=== PATIENT | male | born 1950 | race Caucasian/White ===

== ENCOUNTER 2019-09-20 14:07 | Inpatient (IN) | payer MEDICARE ==
[~2019-09-20] VITALS: Ht 180.3 cm; Wt 81.8 kg
[2019-09-20] MEDS ORDERED: CELEXA20 MG PO (14:14)
[2019-09-20] MEDS ORDERED: FLOMAX0.4 MG PO (14:15)
[2019-09-20] MEDS ORDERED: TRILEPTAL300 MG PO (14:15)
[2019-09-20] MEDS ORDERED: ROPINIROLE HCL1 MG PO (14:15)
--- NOTE | 2019-09-20 14:40 | NUR ---
FLAP LINING BINDER AT BEDSIDE FOR XRAY.
[2019-09-20 14:48] VITALS: BP 130/65
--- NOTE | 2019-09-20 14:49 | NUR ---
PT RESTING IN POSITION OF COMFORT, DENIES NEEDS AT THIS TIME. WILL CONTINUE TO MONITOR.
--- NOTE | 2019-09-20 15:34 | NUR ---
PT TO CT VIA STRETCHER WITH STEWARD/STEWARDESS DINING ROOM.
[2019-09-20 16:31] VITALS: BP 122/71
[2019-09-20 16:55] VITALS: BP 165/83
--- NOTE | 2019-09-20 16:56 | NUR ---
PT MEDICATED PER MD ORDER: MORPHINE 4MG IVP AND ZOFRAN 4MG IVP. NORMAL SALINE STARTED AT 100ML/HR
--- NOTE | 2019-09-20 16:59 | NUR ---
PT USING URINAL AT THIS TIME. INSTRUCTED TO NOTIFY STAFF WHEN FINISHED. VERBALIZED UNDERSTANDING.
--- NOTE | 2019-09-20 17:05 | NUR ---
DR HOLLIDAY AT BEDSIDE.
--- NOTE | 2019-09-20 17:15 | NUR ---
PT INFORMED THAT ROOM IS READY AND HE WILL BE MOVED SOON. PT STATES HE WANTS TO WAIT UNTIL HIS GETS HERE TO DECIDE FOR SURE IF HE WANTS TO BE ADMITTED. PROVIDER NOTIFIED.
[2019-09-20 17:30] VITALS: BP 134/62
--- NOTE | 2019-09-20 17:49 | NUR ---
PT AT BEDSIDE AT THIS TIME.
--- NOTE | 2019-09-20 18:00 | NUR ---
PROVIDER AT BEDSIDE TO DISCUSS PLAN OF CARE WITH PATIENT AND . PT AND WANT TO KNOW IF IT WOULD BE POSSIBLE TO GO HOME TONIGHT AND SEE THEIR OTHO TOMORROW THEY LIVE IN [place]. PROVIDER EXPLAINS RISKS TO PT AND . STATES SHE IS GOING TO TRY AND GET IN TOUCH WITH THEIR ORTHO TO MAKE SURE HE WOULD BE SEEN TOMORROW IF THEY LEAVE.
[2019-09-20] MEDS ORDERED: ASCORBIC ACID500 MG PO (19:00)
[2019-09-20] MEDS ORDERED: BILBERRY100 MG PO (19:01)
[2019-09-20] MEDS ORDERED: ALEVE220 MG PO (19:01)
--- NOTE | 2019-09-20 19:15 | NUR ---
PT BROUGHT TO FLOOR VIA STRETCHER. TRANSFERED SELF TO BED, TOLERATED WELL. STATES NOT MUCH PAIN UNLESS HE MOVES HIS LEG. IV LEFT WRIST INFUSING NS @ 100. RIGHT KNEE SWOLLEN, IN IMMOBILIZER. VSS. STATES WILL BE HERE SOON. INFORMED PT HE NPO AFTER MN. PT EATING DINNER TRAY AT THIS TIME. INFORMED PT HE WOULD NEED HIBI CLEANSE TONIGHT BEFORE SURGERY IN AM, VERBALIZED UNDERSTANDING. STATES HIS WILL HELP WHEN SHE ARRIVES. DENIES FURTHER NEEDS. CL IN REACH, WILL CTM
[2019-09-20 19:25] VITALS: BP 133/69; Ht 180.3 cm; Wt 81.8 kg
--- NOTE | 2019-09-20 20:00 | NUR ---
DR HOLLIDAY AT BEDSIDE SPEAKING WITH PT AND ABOUT PROCEDURE
--- NOTE | 2019-09-20 20:30 | NUR ---
CONSENTS FOR RIGHT QUADRICEP TENDON REPAIR SIGNED AT THIS TIME. RISKS AND BENEFITS EXPLAINED TO PT. PT HAD NO QUESTIONS OR CONCERNS. AT BEDSIDE IN AGREEMENT. PT IS ALERT AND ORIENTED X4
--- NOTE | 2019-09-20 21:00 | NUR ---
ASSISTED PT IN CHANGING OUT OF CLOTHES FOR THE NIGHT. STATED HE WOULD LIKE TO TAKE HIBI CLEANSE IN MORNING. IMMBOLIZER PLACED BACK ON RIGHT LEG. SCD PLACED TO LEFT LEG, PLEXI BOOT TO RIGHT FOOT. PROVIDED PT WITH INCENTIVE SPIROMETER AND INSTRUCTED HOW USE. EDUCATED ABOUT BOTH IS AND SCDS, PT AND VERBALIZED UNDERSTANDING. PROVIDED WITH PILLOW AND BLANKET. DENIES OTHER NEEDS. CL IN REACH, WILL CTM
--- NOTE | 2019-09-20 21:26 | NUR ---
PT STATES PAIN IN RIGHT LEG 02/10, GAVE MORPHINE ORDERED. DENIES OTHER NEEDS. AT BEDSIDE. CL IN REACH, WILL CTM
[2019-09-21] VITALS (9 sets, daily range): BP systolic 102–155; BP diastolic 65–80
--- NOTE | 2019-09-21 03:11 | NUR ---
PT STATES PAIN 6/10, MORE SO TO SIDE OF KNEE. PLACED ICE PACK OVER KNEE. GAVE MORPHINE ORDERED. DENIES OTHER NEEDS. CL IN REACH, WILL CTM
[2019-09-21] MEDS ORDERED: ROPINIROLE HCL0.5 MG PO (03:57)
--- NOTE | 2019-09-21 04:41 | NUR ---
HIBI CLEANSE GIVEN AT THIS TIME. LINENS AND GOWN CHANGED. PT TOLERATED WELL.
[2019-09-21 05:24] LABS: BASOPHILS 0.4 % (0-2); EOSINOPHILS 2.1 % (0-7); HEMATOCRIT 32.5 % (42.0-54.0); HEMOGLOBIN 11.1 g/dL (13.5-17.5); IMMATURE GRANULOCYTES 0.4 % (0-5); LYMPHOCYTES 27.4 % (15-50); MCH 31.6 pg (26.0-34.0); MCHC 34.2 g/dL (31.0-37.0); MCV 92.6 fL (80.0-100.0); MEAN PLATELET VOLUME 8.8 fL (7.4-10.4); NEUTROPHILS 63.7 % (40-80); PLATELET COUNT 347 10x3/uL (130-400); RBC 3.51 10x6/uL (4.20-6.10); RDW 12.2 % (11.5-14.5); WBC 10.8 10x3/uL (4.8-10.8)
[2019-09-21 05:40] LABS: CALC OSMOLALITY 267 mosm/kg (275-300); CARBON DIOXIDE 27.8 mmol/L (21.0-32.0); CHLORIDE - SERUM 99 mmol/L (98-107); CREATININE - SERUM 0.8 mg/dL (0.6-1.3); GLUCOSE 103 mg/dL (74-106); POTASSIUM - SERUM 3.4 mmol/L (3.5-5.1); SODIUM 134 mmol/L (136-145); UREA NITROGEN 13 mg/dL (7-18); eGFR NON AFRICAN AMERICAN > 90 mL/min (90-120)
--- NOTE | 2019-09-21 08:00 | NUR ---
AWAKE AND ALERT. ORIENTED X3. NO C/O AT THIS TIME. LUNGS ARE CLEAR BILATERALLY, NO COUGH NOTED. SKIN IS INTACT WITHOUT REDNESS. IMMOBILYZER IN PLACE TO RIGHT KNEE. ICE APPLIED TO SAME. IV TO LEFT HAND IS PATENT WITHOUT REDNESS AT INSERTION SITE. DENIES NEEDS.
--- NOTE | 2019-09-21 08:14 | NUR ---
OFF UNIT VIA BED TO SURGERY. WITH PATIENT.
[2019-09-21] MEDS ORDERED: HYDROCODON-ACE1 EA10 PO (10:42)
[2019-09-21] MEDS ORDERED: VISTARIL50 MG PO (10:43)
[2019-09-21] MEDS ORDERED: BAYER CHEWABLE81 MG PO (10:43)
[2019-09-21] MEDS ORDERED: KEFLEX500 MG PO (10:46)
--- NOTE | 2019-09-21 11:40 | NUR ---
RETURNED FROM SURGERY. A/O X3. AT BEDSIDE. DRESSING TO RIGHT KNEE IS DRY AND INTACT.
--- NOTE | 2019-09-21 12:29 | MORECARE ---
CASE MANAGEMENT DISCHARGE SUMMARY PATIENT: KAREN HALEY UNIT: [id number] ADM DATE: 09/20/19 AGE: 69 : 52 SEX: M ROOM/BED: D.1212 AUTHOR: MCKENNA CACERES PHYSICIAN: REFERRING PHYSICIAN: DELISA HOLLIDAY DO DATE OF SERVICE: 09/21/19 Discharge Plan Patient Name: KAREN HALEY [facility] [facility] 1950 Planned Disposition: Home Anticipated Discharge Date: Discharge Date: Expected LOS: Initial Reviewer: [email or web address] Initial Review Date: 09/20/2019 Generated: 09/21/19 1:29 pm Comments DCP- Discharge Planning Updated by [email or web address]: Brooke Hinton on 09/21/19 11:[address] Received discharge orders. I called patient and he states he lives in [place] and plans on returning home. States he will need crutches. States he has used them in the past without difficulty. I asked patient's nurse if he is capable of using crutches and she states yes. PT ordered for crutch training. I ordered from [facility] and spoke with Usha. No other needs identified. External Providers External Provider[facility] Next Contact Date: Service Request Date: Service Type: Resolution: Reviewer: Comments: Patient Name: KAREN HALEY Page [phone] at 1229 All edits/amendments must be made on the electronic document DICTATION DATE: 09/21/19 1229 COVERSTITCH ELASTIC ATTACHER: EZEQUIEL 09/21/19 1229 RPT#: [id number] DC DATE: STATUS: ADM IN [facility] [address] [place] [address] END OF REPORT
--- NOTE | 2019-09-21 13:05 | MORECARE ---
CASE MANAGEMENT DISCHARGE SUMMARY PATIENT: KAREN HALEY UNIT: [id number] ADM DATE: 09/20/19 AGE: 69 : 52 SEX: M ROOM/BED: D.1212 AUTHOR: MCKENNA CACERES PHYSICIAN: REFERRING PHYSICIAN: DELISA HOLLIDAY DO DATE OF SERVICE: 09/21/19 Discharge Plan Patient Name: KAREN HALEY Facility: [facility]:[place] : 1950 Planned Disposition: Home Anticipated Discharge Date: Discharge Date: Expected LOS: Initial Reviewer: [email or web address] Initial Review Date: 09/20/2019 Generated: 09/21/19 2:05 pm Comments DCP- Discharge Planning Updated by [email or web address]: Brooke Hinton on 09/21/19 12:[address] Order for the crutches cancelled and a walker ordered per request from [facility]. I spoke with Usha at [facility] and order faxed. DCP- Discharge Planning Updated by [email or web address]: Brooke Hinton on 09/21/19 11:[address] Received discharge orders. I called patient and he states he lives in [place] and plans on returning home. States he will need crutches. States he has used them in the past without difficulty. I asked patient's nurse if he is capable of using crutches and she states yes. PT ordered for crutch training. I ordered from [facility] and spoke with Usha. No other needs identified. Coverage Notice Reviewer: [id number] - Brooke Hinton Notice Issued Date-Time: 09/21/2019 12:29 Notice Type: Patient Choice Letter Notice Delivered To: Patient Relationship to Patient: Self Stummel Selector Name: Delivery Method: PHONE - Phone [facility] Days: Prior Verbal Notification: Recipient Understood Notice: Yes Recipient Signature: Med Rec Note Co-signed by Attending: Coverage Notice Comment: IGNACIO for [facility] Last DP export: 09/21/19 11:29 a Patient Name: KAREN HALEY Page [phone] at 1305 All edits/amendments must be made on the electronic document DICTATION DATE: 09/21/19 1305 CONSULTANT TEACHER: DM 09/21/19 1305 RPT#: [id number] DC DATE: STATUS: ADM IN [facility] [address] [place] [address] END OF REPORT
--- NOTE | 2019-09-21 14:34 | NUR ---
PATIENT HAS DISCHARGE ORDERS. ATE ALL OF LUNCH. VOIDED 3 TIMES CLEAR YELLOW URINE. VSS. DISCHARGE INSTRUCTIONS GIVEN BOTH VERBALLY AND WRITTEN. ALL QUESTIONS ANSWERED. PATIENT AND VERBALIZED UNDERSTANDING OF SAME. ABLE TO DO TTWB WITH WALKER. IV TO LEFT FOREARM D/C WITH CATHETER INTACT. NEEDED PRESCRIPTIONS GIVEN TO PATIENT. ALL BELONGINGS WITH PATIENT.
--- NOTE | 2019-09-21 15:03 | OP ---
PATIENT NAME: KAREN HALEY MEDICAL RECORD: [id number] :54 LOCATION:D. D.1212 ADMISSION DATE:09/20/19 SURGEON: ANIBAL HOLLIDAY DO DATE OF OPERATION: 09/20/2019 PROCEDURE PERFORMED: Right quad tendon repair. PREOPERATIVE DIAGNOSIS: Right quad tendon rupture. POSTOPERATIVE DIAGNOSIS: Right quad tendon rupture. INDICATIONS: Mr. Haley is a 69-year-old male who fell with his knee hyperflexed yesterday, came to the ER as he could not bear weight on it. X-rays were taken that appeared to be a patellar fracture, but a CT was done, which showed the quad tendon rupture and then it was freshened and had not retracted. He does live in [place], I informed him the sooner he gets it fixed, the better he is okay with that of fixing it here. He was aware of the risks including retear, patella baja, now tracking of the patella, blood clots, infection, bleeding, damage to nerves and vessels, need for further surgery, continued pain, loss of range of motion of the knee, blood clot and even . He signed the consent. SURGEON: Anibal Holliday DO DESCRIPTION OF PROCEDURE: The patient was taken to the operative suite, laid in supine position. After given a block by anesthesia in the preoperative area, he was given 2 grams Ancef preoperatively. The patient was sedated and LMA was placed. The right lower extremity was then prepped and draped in sterile fashion. Timeout was performed. Everyone was in agreeance with the correct side, site, patient and procedure. We then began by making a midline incision. Careful dissection down to the quad. There was a large hematoma there that was removed and then the knee was irrigated out to remove any clots or devitalized tissue and debrided. The broad band tape was then used 1.5 mm to do a Krackow stitch up the medial side down the middle and then up the lateral side down the middle leaving 4 limbs. We then put 3 holes in the patella from proximal to distal with 2.0 drill bit and then put a Hewson suture passer through passing the sutures from the medial and lateral side and then the 2 in the middle aspect passed through the middle. I then crossed the sutures distally and tied them down with the knee in extension, closing the gap, the rupture. This was also checked at 90 degrees of flexion and there was no gap with a very nice repair. We then, with a #1 Vicryl running stitch along the retinaculum from medial to lateral, and removed any devitalized tissue that was not included in the repair. At that time, I had a very nice repair done there and irrigated the knee one more time. The skin was then closed by Dr. James Stern, certified surgical orthopaedic physician assistant with 2-0 Vicryl in an inverted interrupted fashion, ZipLine was placed on the knee, it was then dressed with Adaptic, 4 x 4s, ABD, Webril, Chaz wrap and MANJEET stocking up to the and knee and a hinged knee brace was placed on the patient, locked in extension, but he could unlock it to move to 90. He was then awakened and taken to recovery in stable condition. The tourniquet was used and was inflated prior to starting. After exsanguinating the right lower extremity and tourniquet was inflated for 45 minutes and then let down to 350 mmHg, was let down at 45 minutes. Blood loss was approximately 100 mL. COMPLICATIONS: None. OPERATIVE REPORT [id number] KAREN HALEY TRANSSABAS:[id number] Voice Confirmation ID: [id number] DOCUMENT ID: [id number] ANIBAL HOLLIDAY DO at 1503 CC: [id number] DICTATION DATE: 09/21/19 1058 PRICING STRATEGIST: 09/21/19 1251 DIS IN 09/21/19 [facility] [address] [place] [id number]
--- NOTE | 2019-09-23 16:03 | MORECARE ---
CASE MANAGEMENT DISCHARGE SUMMARY PATIENT: KAREN HALEY UNIT: [id number] ADM DATE: 09/20/19 AGE: 69 : 52 SEX: M ROOM/BED: D.1212 AUTHOR: MCKENNA CACERES PHYSICIAN: REFERRING PHYSICIAN: DELISA HOLLIDAY DO DATE OF SERVICE: 09/23/19 Discharge Plan Patient Name: KAREN HALEY Facility: [facility]:[place] : 1950 Planned Disposition: Home Anticipated Discharge Date: Discharge Date: 09/21/2019 Expected LOS: Initial Reviewer: [email or web address] Initial Review Date: 09/20/2019 Generated: 09/23/19 5:03 pm DCP- Discharge Planning Updated by [email or web address]: Brooke Hinton on 09/21/19 12:[address] Order for the crutches cancelled and a walker ordered per request from [facility]. I spoke with Usha at [facility] and order faxed. DCP- Discharge Planning Updated by [email or web address]: Brooke Hinton on 09/21/19 11:[address] Received discharge orders. I called patient and he states he lives in [place] and plans on returning home. States he will need crutches. States he has used them in the past without difficulty. I asked patient's nurse if he is capable of using crutches and she states yes. PT ordered for crutch training. I ordered from [facility] and spoke with Usha. No other needs identified. Coverage Notice Reviewer: [id number] - Brooke Hinton Notice Issued Date-Time: 09/21/2019 12:29 Notice Type: Patient Choice Letter Notice Delivered To: Patient Relationship to Patient: Self Tank Truck Operator Name: Delivery Method: PHONE - Phone [facility] Days: Prior Verbal Notification: Recipient Understood Notice: Yes Recipient Signature: Med Rec Note Co-signed by Attending: Coverage Notice Comment: IGNACIO for [facility] Last DP export: 09/21/19 12:05 p Patient Name: KAREN HALEY Page [phone] at 1603 All edits/amendments must be made on the electronic document DICTATION DATE: 09/23/191602 KINDERGARTNER: EZEQUIEL 09/23/19 160 RPT#: [id number] DC DATE:09/21/19 STATUS: DIS IN [facility] [address] [place] [address] END OF REPORT
== END 2019-09-21 14:38 | disposition home or self-care (01) | DRG 502 ==
LOC: D.ER 14:07 → D.M3 16:24
PROVIDERS: Family Medicine; ADMIT Orthopaedic Surgery; ATTEND Orthopaedic Surgery
PROC: 0LQL0ZZ Repair Right Upper Leg Tendon, Open Approach (ICD-10-PCS; principal; 2019-09-20)
DX: S76.111A Strain of right quadriceps muscle, fascia and tendon, initial encounter (principal); X58.XXXA Exposure to other specified factors, initial encounter